=== PATIENT | female | born 1980 ===

== ENCOUNTER → 2020-04-06 | Outpatient (CLI) | payer BC ==
[2020-04-10 15:10] LABS: HPV 16 Negative (Negative); HPV 18 Negative (Negative); HPV OTHER HR TYPES Negative (Negative)
== END ==
LOC: LAB SHORT 10:15
PROVIDERS: Obstetrics & Gynecology
DX: Z01.419 Encounter for gynecological examination (general) (routine) without abnormal findings (principal)
CPT/HCPCS: 87624; G0123

== ENCOUNTER 2022-04-11 08:58 | Day surgery (SDC) | payer OTHER ==
[~2022-04-11] VITALS: Ht 167.6 cm; Wt 58.4 kg
[2022-04-11] MEDS ORDERED: CALCIUM CIT 311 EAC7 PO (10:00)
[2022-04-11] MEDS ORDERED: Flonase 0.05% N16 GM (10:01)
[2022-04-11] MEDS ORDERED: OMEP20ER PO (10:02)
--- NOTE | 2022-04-11 10:26 | NUR ---
Ambulatory in Day Surgery. Patient confirms NPO status and agrees with scheduled surgery. Pre-Op teaching done. Pt verbalizes understanding. Patient reports completing Chlorhexadine shower X2 prior to admission to hospital. Lungs clear T/O to Auscultation. Patient States Post-Procedure ride home has been arranged. URINE HCG TOO DILUTE; SERUM SENT TO LAB FOR CONFIRMATION.
--- NOTE | 2022-04-11 12:27 | NUR ---
REPORT RECEIVED FROM JAMILAH MARINO RN. VSS. PT RESTING COMFORTABLY IN BED WITH SPLINT ON FOREARM WRAPPED IN ALONDRA BANDAGE. WRAP IS C/D/I WITHOUT DRAINAGE, REDNESS, OR SWELLING. CAP REFILL <2 SECONDS, PT CAN MOVE ALL FINGERS ON OPERATIVE SITE FREELY. PT VERBALIZES NUMBNESS TO FINGERS IS STILL PRESENT. PT REPORTS "ACHING" WRIST PAIN 2/10. PT DENIES NAUSEA AT THIS TIME. PT REQUESTING PO FLUIDS AND IS TOLERATING THEM WELL. PT ABLE TO REPOSITION HERSELF IN BED.
--- NOTE | 2022-04-11 13:19 | NUR ---
Patient up to Ambulate independently. Gait steady. Discharge instructions reviewed with patient. Patient verbalizes understanding. Copy given to patient to take home. Dressing to procedure site clean, dry, intact with no visible drainage, swelling, erythema or bruising noted. CAP REFILL <2 SECONDS, ARM PLACED IN SLING ON DISCHARGE. Patient States Post-Procedure ride home has been arranged. Discharged via wheelchair to private car for ride home. PT BELONGINGS RETURNED TO PT.
== END 2022-04-11 22:56 | disposition home or self-care (01) ==
LOC: ORSCMMR 08:58 → ORD 10:00 → ORSCMMR 10:00
PROVIDERS: Orthopaedic Surgery
PROC: 0PSJ04Z Reposition Left Radius with Internal Fixation Device, Open Approach (ICD-10-PCS; principal; 2022-04-11 10:00)
DX: S52.552A Other extraarticular fracture of lower end of left radius, initial encounter for closed fracture (principal)
CPT/HCPCS: 84703; A9270; C1713; J0171; J0690; J1100; J1885; J2250; J2405; J2704; J3010; J7120